=== PATIENT | male | born 1935 | race Caucasian/White ===

== ENCOUNTER 2016-05-01 12:16 | Inpatient (IN) | payer OTHER ==
[2016-05-01] MEDS ORDERED: ASPIRIN PO STA (12:32)
[2016-05-01 12:47] LABS: MANUAL DIFF NEEDED? NO
[2016-05-01] MEDS ORDERED: NORCO-7.5 PO ONE (12:47)
[2016-05-01 12:49] LABS: BASO% 1.1 % (0.0-0.8); EOS# 0.14 X1000 (0.0-0.7); EOS% 2.7 % (0.0-10.0); HEMATOCRIT 37.2 % (42.0-52.0); HEMOGLOBIN 11.9 g/dL (14.0-18.0); IMM GRAN# 0.01 X1000 (0.0-0.04); IMM GRAN% 0.2 % (0.0-0.5); LYMPH# 0.89 X1000 (1.2-3.4); MCH 27.1 PG (27-31); MCV 84.7 FL (81-99); MONO# 0.54 X1000 (0.11-0.59); MONO% 10.3 % (1.7-9.3); MPV 9.4 FL (7.4-10.4); NEUT% 68.7 % (42.2-75.2); PLT 213 X1000 (130-400); RBC 4.39 XMIL (4.7-6.1)
[2016-05-01 13:12] LABS: INR 1.3 (0.86-1.15); PROTIME 16.5 Seconds (12.1-15.5)
[2016-05-01 13:13] LABS: PTT PL 39.4 Seconds (22.6-43.9)
[2016-05-01 13:17] LABS: AGAP 10; ALBUMIN 3.7 g/dL (3.5-5.0); ALKALINE PHOSPHATASE 83 U/L (32-122); BUN 21 mg/dL (8-22); CALCIUM 9.1 mg/dL (8.8-10.2); CHLORIDE 104 mmol/L (98-107); CK PROFILE 79 U/L (24-204); COSMO 283; GOT 20 U/L (10-34); GPT 16 U/L (10-44); MAGNESIUM 2.4 mg/dL (1.5-2.7); POTASSIUM 3.8 mmol/L (3.5-5.1); SODIUM 139 mmol/L (136-145); TCO2 25 mmol/L (25-35); TOTAL PROTEIN 7.1 g/dL (6.3-8.3)
--- NOTE | 2016-05-01 13:23 | PROVIDER DOCUMENTATION ---
HPI-Chest Pain - General Chief Complaint: Chest Pain Stated Complaint: CHEST PAIN Time Seen by Provider: 05/01/16 12:22 Source: patient, family Allergies/Adverse Reactions: Patient Allergies Allergy/AdvReac Type Severity Reaction Status Date / Time Penicillins Allergy RASH Verified 05/01/16 12:22 Home Medications: Home Medication List Medication Instructions Recorded Confirmed Last Taken Type Alprazolam [Xanax] 0.5 mg PO HS 12/20/15 12/21/15 Unknown History Amiodarone [Cordarone] 200 mg PO DAILY 12/20/15 12/20/15 05/01/16 History Apixaban [Eliquis] 5 mg PO DAILY 12/20/15 12/20/15 05/01/16 History Aspirin [Aspir-Low] 81 mg PO DAILY 12/20/15 12/20/15 05/01/16 History Furosemide [Lasix] 40 mg PO DAILY 12/20/15 12/20/15 05/01/16 History Insulin Humulin 70/30 [Humulin 25 unit .SEE ORDER DIRECTED 12/20/15 12/20/15 05/01/16 History 70/30] Potassium Chloride E.r. [Klor-Con] 20 meq PO DAILY 12/20/15 12/20/15 05/01/16 History RAMIpril [Altace] 5 mg PO DAILY 12/20/15 12/20/15 05/01/16 History Temazepam [Restoril] 30 mg PO HS 12/20/15 12/21/15 04/30/16 History - History of Present Illness-CP Nature of Presenting Problem: Reports to er with original cc of Chest pain. Pt reports now no chest pain. Daughter at bedside Reports to father " but daddy what about at home when you grab your chest?" Pt Replies "Destiny its because of stress." Pt complains of left hip pain at this time. Pt reports he has had two open heart sx and bilateral hip replacements and a pacemaker. Denies sob,v,weakness,f. Denies having any injuries. Quality of Pain: reports: aching Severity in ED: moderate Onset/Duration: unsure Timing: still present Aspirin Treatment Today: 325 mg x 1, provided by ED Similar Symptoms Previously?: Yes Recently Seen Here or By Another Healthcare Provider: No Review of Systems - Adult - REVIEW OF SYSTEMS - ADULT Constitutional: denies: chills, fever, fatique Eyes: reports: no symptoms reported Ears, Nose, Mouth & Throat: denies: ear pain, sinus problem, throat pain Cardiovascular: reports: see HPI, chest pain. denies: irregular heart rate, orthopnea, syncope Respiratory: denies: cough, shortness of breath, wheezing Gastrointestinal: reports: nausea. denies: abdominal pain, diarrhea, vomiting Genitourinary: reports: no symptoms reported Musculoskeletal: reports: see HPI, joint pain. denies: frequent leg cramps, joint swelling, muscle weakness, neck pain Integumentary: reports: no symptoms reported Neurological: reports: no symptoms reported Psychiatric: reports: no symptoms reported Endocrine: reports: no symptoms reported Hematologic/Lymphatic: reports: no symptoms reported Allergic/Immunologic: reports: no symptoms reported All Other Systems: Reviewed and Negative Past History - Adult - PAST MEDICAL HISTORY-ADULT Review of Records: reports: Nursing Assessment Review Major Childhood Illnesses: reports: denies history Cardiovascular: reports: CHF, hyperlipidemia, pacemaker Gastrointestinal: reports: cancer (colon) Neurological: reports: dementia Endocrine/Immune: reports: Diabetes - PRIOR SURGERIES/PROCEDURES Surgical/Procedure History: reports: CABG (x), hernia repair, joint replacement , back/neck, other (colostomy) - IMMUNIZATION STATUS Childhood Immunizations: See Nurse Assessment Flu Vaccine: See Nurse Assessment - SOCIAL HISTORY Smoking: denies Substance Use: none/never Physical Exam-General - PHYSICAL EXAM-ADULT Initial Vital Signs Reviewed: Yes - CONSTITUTIONAL General Appearance: appears well, alert, no apparent distress - EYES Eyes: PERRL/EOMI - NECK Neck: non-tender, full range of motion, supple, normal inspection - RESPIRATORY Respiratory: chest non-tender, lungs clear, normal breath sounds, no pleuratic chest pain, no respiratory distress, no accessory muscle use - CARDIOVASCULAR Cardiovascular: regular rate, rhythm - GASTROINTESTINAL (ABDOMEN) Abdominal Exam: non tender, soft, no organomegaly, no pulsatile mass - MUSCULOSKELETAL Extremity: normal range of motion, non-tender - SKIN Integumentary: normal color, normal turgor, warm/dry - PSYCHIATRIC Psych/Mental Status: normal mood/affect, normal thought content, normal thought process, oriented x 3 Progress - PLAN OF CARE/RESULTS Progress/Plan/Lab Results: Orders Category Date Time Status Cardiac Monitoring DIRECTED Care 05/01/16 12:33 Active Saline Loc NOW Care 05/01/16 12:33 Active CHEST-PORTABLE [RAD] Stat Exams 05/01/16 12:32 Ordered XRAY PELVIS W/HIP 2-3VW LT [RAD] Stat Exams 05/01/16 13:01 Taken CBC WITH ELECTRONIC DIFF [HEME] Stat Lab 05/01/16 12:40 Completed CK PROFILE [SP CHEM] Stat Lab 05/01/16 12:40 Completed COMPREHENSIVE METABOLIC PANEL [CHEM] Stat Lab 05/01/16 12:[address] D-D[address]ER [address] [COAG] Stat Lab 05/01/16 12:40 Results MAGNESIUM [CHEM] Stat Lab 05/01/16 12:40 Completed PRO B-NATRIURETIC PEPTIDE Stat Lab 05/01/16 12:[address] Received [address]IME WITH INR PL [COAG] Stat Lab 05/01/16 12:[address] [COAG] Stat Lab 05/01/16 12:40 Results TROPONIN T Stat Lab 05/01/16 12:40 Completed Aspirin Med 05/01/16 12:32 Discontinued 325 mg PO STAT STA Hydrocodone/APAP 7.5 mg/325 mg [Arion-7.5] Med 05/01/16 12:47 Discontinued 1 each PO NOW ONE EKG [EKG] Stat Ther 05/01/16 12:33 Ordered Orders Category Date Time Status Cardiac Monitoring DIRECTED Care 05/01/16 12:33 Active Saline Loc NOW Care 05/01/16 12:33 Active ANGIOGRAM/PULMONARY ARTERIES [CT] Stat Exams 05/01/16 14:29 Ordered CHEST-PORTABLE [RAD] Stat Exams 05/01/16 12:32 Taken XRAY PELVIS W/HIP 2-3VW LT [RAD] Stat Exams 05/01/16 13:01 Completed CBC WITH ELECTRONIC DIFF [HEME] Stat Lab 05/01/16 12:40 Completed CK PROFILE [SP CHEM] Stat Lab 05/01/16 12:40 Completed COMPREHENSIVE METABOLIC PANEL [CHEM] Stat Lab 05/01/16 12:[address] [COAG] Stat Lab 05/01/16 12:40 Completed MAGNESIUM [CHEM] Stat Lab 05/01/16 12:40 Completed PRO B-NATRIURETIC PEPTIDE Stat Lab 05/01/16 12:[address] Com[address]IME WITH INR PL [COAG] Stat Lab 05/01/16 12:[address] [COAG] Stat Lab 05/01/16 12:40 Completed TROPONIN T Stat Lab 05/01/16 12:40 Completed Aspirin Med 05/01/16 12:32 Discontinued 325 mg PO STAT STA Hydrocodone/APAP 7.5 mg/325 mg [Arion-7.5] Med 05/01/16 12:47 Discontinued 1 each PO NOW ONE EKG [EKG] Stat Ther 05/01/16 12:33 Draft Laboratory Tests 05/01/16 05/01/16 05/01/16 12:40 12:40 12:40 WBC RBC Hgb Hct MCV MCH MCHC RDW Std Deviation Plt Count MPV Immature Gran % (Auto) Neut % (Auto) Lymph % (Auto) [place] % (Auto) Eos % (Auto) Baso % (Auto) Immature Gran # (Auto) Neut # (Auto) Lymph # (Auto) [place] # (Auto) Eos # (Auto) Baso # (Auto) PT INR APTT (Factor Assay) D-Dimer Sodium 139 Potassium 3.8 Chloride 104 Carbon Dioxide 25 Anion Gap 10 BUN 21 Creatinine 1.0 Estimated GFR/1.73 m2 > 60 BUN/Creatinine Ratio 21 Glucose 135 H Calculated Osmolality 283 Calcium 9.1 Magnesium 2.4 Total Bilirubin 0.50 AST 20 ALT 16 Alkaline Phosphatase 83 Creatine Kinase 79 Troponin T < 0.010 [id number] Pept 2571 H Total Protein 7.1 Albumin 3.7 Globulin 3.0 Albumin/Globulin Ratio 1.0 05/01/16 05/01/16 12:40 12:40 WBC 5.23 RBC 4.39 L Hgb 11.9 L Hct 37.2 L MCV 84.7 MCH 27.1 MCHC 32.0 L RDW Std Deviation 14.5 Plt Count 213 MPV 9.4 Immature Gran % (Auto) 0.2 Neut % (Auto) 68.7 Lymph % (Auto) 17.0 L [place] % (Auto) 10.3 H Eos % (Auto) 2.7 Baso % (Auto) 1.1 H Immature Gran # (Auto) 0.01 Neut # (Auto) 3.59 Lymph # (Auto) 0.89 L [place] # (Auto) 0.54 Eos # (Auto) 0.14 Baso # (Auto) 0.06 PT 16.5 H INR 1.30 H APTT (Factor Assay) 39.4 D-Dimer 2.40 H Sodium Potassium Chloride Carbon Dioxide Anion Gap BUN Creatinine Estimated GFR/1.73 m2 BUN/Creatinine Ratio Glucose Calculated Osmolality Calcium Magnesium Total Bilirubin AST ALT Alkaline Phosphatase Creatine Kinase Troponin T [id number]-[id number] Pept Total Protein Albumin Globulin Albumin/Globulin Ratio Vital Signs - 24 hr 05/01/16 14:09 Pulse Rate 82 Respiratory 17 Rate Blood Pressure 117/75 1550 paiged - EKG 1 Time of EKG reading by physician:: 12:20 EKG Read and Signed by:: Sudeep Zamudio EKG Interpretation (*Must complete 3 of following elements*): Abnormal Rate: 88 Rhythm: nsr Olla: normal QRS: LBB MA Interval: normal - XRAY 1 XRAY: Bilateral XRAY Study: Chest Impression: Abnormal (left effusion with atelectasis) - CT/MRI 1 CT Study: Angiogram Impression: Abnormal (NO PE. Small effusions with basilar atelectasis and possibley and underlying infiltrate in the LLL. Emphysema. There is evidence of prior granulomatous infection. Limited images through the upper abd reveal several stones within a nondistended gallbladder. no adjacent inflammation.), See EMR Report - CONSULTS/PCP/HOSPITALIST Notification #1 *Consult/PCP/Hospitalist*: Time Discussed: 15:54 Consult Disposition: Admit Departure - Departure Time of Disposition Order: 15:46 DIAGNOSIS: Pneumonia Qualifiers: Pneumonia type: due to unspecified organism Laterality: left Lung location: lower lobe of lung Qualified Code(s): J18.1 - Lobar pneumonia, unspecified organism Chest pain Qualifiers: Chest pain type: unspecified Qualified Code(s): R07.9 - Chest pain, unspecified Disposition: ADMITTED INPATIENT 09 Certified Medical Emergency: Emergent Condition: Stable Attestation - Scribe Verification/Attestation Scribe:: Verona Bacon Acting as Scribe for:: Sudeep Zamudio Scribe documention review:: This chart was documented by a scribe and accurately reflects the service the provider performed and the decisions made by the provider. Physician Attestation - Physician Attestation I, the provider, attest to the following statement:: Sudeep Zamudio Physician documentation Attestation:: This documentation recorded by the scribe accurately reflects the service I personally performed and the decisions made by me.
--- NOTE | 2016-05-01 13:24 | EKG Report ---
Test Performed on : 05/01/2016 12:20:13 PM Test Reason : CHEST PAIN Blood Pressure : / mmHG Vent. Rate : 088 BPM Atrial Rate : 088 BPM P-R Int : 148 ms QRS Dur : 144 ms QT Int : 438 ms P-R-T Axes : 016 051 205 degrees QTc Int : 529 ms Normal sinus rhythm. Left bundle branch block Abnormal ECG No previous ECGs available Unconfirmed Result
--- NOTE | 2016-05-01 13:37 | Diag Imaging Result Document ---
PROCEDURE NAME: XRAY PELVIS W/HIP 2-3VW LT - 05/01/2016 PELVIS AND LEFT HIP, THREE VIEWS: FINDINGS: There has been prior orthopaedic replacement of the left hip. No evidence of loosening. No fracture. No dislocation. No other bony abnormality. IMPRESSION: No acute abnormality.
--- NOTE | 2016-05-01 15:34 | Diag Imaging Result Document ---
PROCEDURE NAME: ANGIOGRAM/PULMONARY ARTERIES - 05/01/2016 CT CHEST WITH INTRAVENOUS CONTRAST: FINDINGS: There is normal opacification of the pulmonary arteries and their major branches. There is a small left sided pleural effusion measuring 2.6 cm posteriorly and inferiorly in the midline. Trace right effusion. No cardiomegaly. There is at least moderate atherosclerosis. No aneurysmal dilatation to the thoracic aorta or dissection. There are several small calcified mediastinal lymph nodes and there are scattered calcified granuloma. Small hilar lymph nodes are also calcified. There are severe emphysematous changes. There is atelectasis versus and infiltrate in the left lower lobe with a small amount of atelectasis in the right lower lobe. IMPRESSION: 1. No pulmonary emboli. 2. Small effusions with basilar atelectasis and possibly and underlying infiltrate in the left lower lobe. 3. Emphysema. 4. There is evidence of a prior granulomatous infection. 5. Limited images through the upper abdomen reveal several stones within a nondistended gallbladder. No adjacent inflammation. A preliminary report was given at 3:19 p.m.
[2016-05-01] MEDS ORDERED: ROCEPHIN 1 GM/NS 50 ML IV ONE (15:45)
[2016-05-01] MEDS ORDERED: LEVAQUIN PO ONE (15:45)
[2016-05-01] MEDS ORDERED: ZOFRAN IV PRN (17:46)
[2016-05-01] MEDS ORDERED: TYLENOL PO PRN (17:46)
[2016-05-01] MEDS ORDERED: PNEUMOVAX 23 IM ONE (19:30)
[2016-05-01] MEDS ORDERED: MORPHINE IV PRN ×2 (19:55→20:53)
[2016-05-01] MEDS ORDERED: TORADOL IV PRN (20:53)
[2016-05-01] MEDS ORDERED: XANAX PO PRN (20:55)
[2016-05-01] MEDS ORDERED: DUONEB (A & A) INH PRN (20:57)
[2016-05-01] MEDS ORDERED: HUMULIN R DOSE (PARKWAY) SUBQ SCH (21:00)
[2016-05-01] MEDS ORDERED: HUMULIN 70/30 SCH (21:00)
[2016-05-01] MEDS ORDERED: NORCO-7.5 PO PRN (21:23)
[2016-05-01] MEDS: DUONEB (A & A) INH SCH (22:16)
[2016-05-01] MEDS: ZANAFLEX PO SCH (22:44)
[2016-05-01] MEDS: RESTORIL PO SCH (22:44)
[2016-05-01] MEDS: ALTACE PO SCH (22:50)
[2016-05-02] MEDS: NEURONTIN PO SCH ×4 (00:07→16:14)
[2016-05-02] MEDS: MORPHINE IV PRN ×5 (00:57→20:50)
[2016-05-02] MEDS: DUONEB (A & A) INH SCH ×4 (03:02→22:57)
[2016-05-02 06:40] LABS: HEMATOCRIT 34.5 % (42.0-52.0); HEMOGLOBIN 10.8 g/dL (14.0-18.0); MCH 26.7 PG (27-31); MCHC 31.3 g/dL (33-37); MCV 85.4 FL (81-99); MPV 10.1 FL (7.4-10.4); RBC 4.04 XMIL (4.7-6.1)
[2016-05-02 06:55] LABS: AGAP 12; BUN 23 mg/dL (8-22); CALCIUM 8.6 mg/dL (8.8-10.2); CHLORIDE 103 mmol/L (98-107); COSMO 282; SODIUM 137 mmol/L (136-145); TCO2 22 mmol/L (25-35)
[2016-05-02] MEDS: HUMULIN R (PARKWAY) SUBQ SCH ×4 (07:01→20:57)
--- NOTE | 2016-05-02 07:16 | Diag Imaging Result Document ---
PROCEDURE NAME: CHEST-PORTABLE - 05/01/2016 PORTABLE CHEST: FINDINGS: Sternal wires are present and the patient has a left sided pacemaker. There is a small left effusion with left basilar atelectasis. The right lung is well expanded and clear. The vessels are not distended. IMPRESSION: Small left pleural effusion with left basilar atelectasis.
--- NOTE | 2016-05-02 08:48 | Diag Imaging Result Document ---
PROCEDURE NAME: PELVIS W/O CONTRAST - 05/01/2016 CT SCAN OF THE PELVIS WITHOUT IV CONTRAST WITH 3D RECONSTRUCTION: Preliminary interpretation was given by the on-call radiologist. INDICATION: Severe left hip pain. FINDINGS: There are bilateral total hip arthroplasties without adverse features. No acute fracture or destructive lesion is identified. There is a previous L4 and L5 laminectomy. There are bulging disks and facet bony overgrowth at L4/L5 and L5/S1 producing bilateral neural foraminal stenosis. There is contrast within the bladder from previous CT angiogram. Left lower quadrant ostomy with hernia is noted as is a small anterior midline ventral hernia containing bowel but no obstruction. The distal abdominal aorta measures 2.8 cm in maximal dimension with unchanged intimal calcification which appears somewhat displaced and is indeterminate for dissection. IMPRESSION: 1. Bilateral total hip arthroplasties without adverse features. No fracture about the pelvis is appreciated. 2. Severe degenerative changes in the lower lumbar spine with bilateral neural foraminal stenosis at L3/L4, L4/L5, and L5/S1. 3. Anterior ventral hernia and left lower quadrant ostomy hernia containing bowel but no definite obstruction.
[2016-05-02] MEDS ORDERED: NEURONTIN PO SCH (09:00)
[2016-05-02] MEDS: LEVAQUIN PO SCH (09:05)
[2016-05-02] MEDS: ELIQUIS PO SCH (09:05)
[2016-05-02] MEDS: ZANAFLEX PO SCH ×3 (09:05→16:14)
[2016-05-02] MEDS: ASPIRIN EC PO SCH (09:06)
[2016-05-02] MEDS: CORDARONE PO SCH (09:06)
[2016-05-02] MEDS: KLOR-CON PO SCH (09:06)
[2016-05-02] MEDS: LASIX PO SCH (09:07)
[2016-05-02] MEDS: HUMULIN 70/30 (PARKWAY) SUBQ SCH ×2 (09:16→16:52)
[2016-05-02] MEDS ORDERED: ZANAFLEX PO PRN (17:15)
--- NOTE | 2016-05-02 17:41 | HISTORY AND PHYSICAL ---
CHIEF COMPLAINT: Left hip pain. In the ER somehow it was transitioned as a chest pain. He really is coming in because of chest pain. HISTORY OF PRESENT ILLNESS: There is a family element that is making the assessment fairly difficult as family is a nurse, and according to the report here, daughter at bedside reports the dadsteve went when you grab your chest. So, he has chest pain, but it has to kind of be elaborated. Really he was complaining more about his hip and hip pain for which he has had bilateral hip replacements. He does have a cardiac history, but it is unclear really if he does truly have any chest pain. Workup in the ER was really unremarkable except for CT showed questionable left lower lobe infiltrate which turned into a diagnosis of pneumonia and he was admitted for such a process. He did have a nondistended gallbladder. Plain films of his hips were unremarkable. He has had bilateral replacements, and he had no chest pain when I interviewed him the evening before. There was some concern in the ER, daughter got very upset that he was not admitted to the ICU. There has been a lot of family dynamics kind of complicating and frankly just interfering in care. PAST MEDICAL HISTORY: 1. Atrial fibrillation. 2. Coronary artery disease, status post CABG. 3. Type 2 diabetes. 4. Dyslipidemia. 5. History of colon cancer status post colectomy. 6. Congestive heart failure. 7. Dementia. PAST SURGICAL HISTORY: 1. He had CABG. 2. Back and neck surgery. 3. Colon resection with colostomy. FAMILY HISTORY: Reviewed and noncontributory. SOCIAL HISTORY: No tobacco or ethanol. He is retired. ALLERGIES: Penicillin which causes a rash. REVIEW OF SYSTEMS: Negative. MEDICATIONS: 1. Xanax 0.25, 1 mg p.r.n. 2. Altace 5 daily. 3. Apixaban 5 daily. 4. Aspirin 81 daily. 5. Cordarone 200 daily. 6. 70/30 insulin, 25 in the morning and 20 at night. 7. Klor-Con 20 daily. 8. Lasix 40 daily. 9. Restoril 30 daily. 10. Neurontin 200 t.i.d. REVIEW OF SYSTEMS: Otherwise negative times a 10 point review of systems. PHYSICAL EXAMINATION: VITAL SIGNS: Blood pressure was 121/97, heart rate of 83, respiratory rate 18, temperature 97.4 degrees. 100% saturation on room air. GENERAL: A well-developed male, no acute distress. HEAD: Normocephalic, atraumatic. EYES: Pupils equal, round, reactive to light. Extraocular movements were intact. EAR/NOSE/THROAT: Moist mucous membranes. NECK: Supple. CARDIOVASCULAR: Regular rate and rhythm. PULMONARY: Bilateral breath sounds. Clear to auscultation. GI: Soft, nontender, nondistended. Bowel sounds are positive. EXTREMITIES: No clubbing or cyanosis. LYMPHATICS: No peripheral edema. NEUROLOGICAL: Nonfocal. LABORATORY DATA: White count normal, hemoglobin and hematocrit 10 and 34. Chemistries looked okay. Coagulase okay. CT scan of the pelvis was negative for fracture, infection, inflammation. PROBLEM LIST: 1. Chest pain which is atypical and probably related to pulmonary infection and really felt more that this was an issue associated with a positive review of systems than truly a chief complaint. His main complaint was his hip so he was further evaluated. 2. Left hip pain. We will pursue computed tomography scan and follow clinically. Continue pain control. If unimproved, consider Orthopedics consult. 3. Diabetes. Continue to monitor. Sliding scale and follow closely. DISPOSITION: Pending the rest of his multiple issues.
--- NOTE | 2016-05-02 17:47 | PROGRESS NOTE ---
DATE: 05/02/2016 SUBJECTIVE: Patient has no complaints except hip pain O: AVSS PE: CV: RRR PULM: CTA-B GI: soft NT/ND BS:+ EX: hip pain on left side AP: 1) Right hip pain - unclear diagnosis; . He says the pain medication is not working. His son states that we did increase the morphine this morning and he feels like the morphine is working. He had relief for about 4-5 hours so it is a little confusing sometimes. It is still unclear what the source of pain is. His plain films and CT are negative. I have requested an orthopedic consult that is still in the process of happening. Mid level has evaluated the patient. Dr. Carreon will come and evaluate a little later. 2. Chest pain. Appears to have resolved. 3. Pneumonia. He is on oral Levaquin and seems to be doing okay. We will continue to follow. MTDD
[2016-05-02] MEDS ORDERED: SOLU-MEDROL IV ONE (19:44)
[2016-05-02] MEDS: RESTORIL PO SCH (20:50)
[2016-05-02] MEDS: ALTACE PO SCH (20:51)
[2016-05-03] MEDS: DUONEB (A & A) INH SCH ×4 (04:25→21:15)
[2016-05-03] MEDS: MORPHINE IV PRN ×2 (04:49→09:56)
[2016-05-03 06:05] LABS: HEMATOCRIT 37.2 % (42.0-52.0); HEMOGLOBIN 11.9 g/dL (14.0-18.0); MCH 26.9 PG (27-31); MCV 84.2 FL (81-99); MPV 10.3 FL (7.4-10.4); RBC 4.42 XMIL (4.7-6.1)
[2016-05-03] MEDS: HUMULIN R (PARKWAY) SUBQ SCH ×3 (06:09→17:43)
[2016-05-03 06:50] LABS: AGAP 12; BUN 28 mg/dL (8-22); CALCIUM 9.4 mg/dL (8.8-10.2); CHLORIDE 101 mmol/L (98-107); COSMO 283; POTASSIUM 4.7 mmol/L (3.5-5.1); SODIUM 135 mmol/L (136-145); TCO2 22 mmol/L (25-35)
[2016-05-03] MEDS: HUMULIN 70/30 (PARKWAY) SUBQ SCH ×2 (07:24→17:44)
[2016-05-03] MEDS: ELIQUIS PO SCH (09:55)
[2016-05-03] MEDS: NEURONTIN PO SCH ×3 (09:56→17:43)
[2016-05-03] MEDS: KLOR-CON PO SCH (09:56)
[2016-05-03] MEDS: ASPIRIN EC PO SCH (09:56)
[2016-05-03] MEDS: LEVAQUIN PO SCH (09:56)
[2016-05-03] MEDS: CORDARONE PO SCH (09:56)
[2016-05-03] MEDS: LASIX PO SCH (09:56)
--- NOTE | 2016-05-03 10:07 | CONSULTATION ---
DATE OF CONSULTATION: 05/02/2016 ADMITTING PHYSICIAN: Suman Grant MD. CONSULTING PHYSICIAN: Gregorio Carreon MD. CHIEF COMPLAINT: Left hip pain. HISTORY OF PRESENT ILLNESS: Mr. Cano is a pleasant, 86-year-old, white male who has experienced recalcitrant left hip pain for 2 weeks. 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 He denies any history of injury to the left hip for falls. His pain is worse with weightbearing activities. It is transient in that sometimes it becomes more severe and then wanes. However, his pain has progressed and he presented himself to the emergency department for evaluation. Mr. Cano has multiple medical comorbidities and was admitted by Dr. Grant after a CT scan revealed findings consistent with possible consolidation in his respiratory system. Orthopedics was consulted for his left hip pain in that he has had bilateral total hip arthroplasties. PRIMARY CARE PROVIDER: Christos Gaviria MD. ALLERGIES: Penicillin. PAST MEDICAL HISTORY: 1. Osteoarthritis. 2. Coronary artery disease. 3. Hypertension. 4. Congestive heart failure. 5. History of atrial fibrillation. 6. History of colorectal cancer. 7. Insulin-dependent diabetes mellitus. 8. Dementia. 9. Peripheral neuropathy. 10. Anxiety disorder. 11. Insomnia. PAST SURGICAL HISTORY: 1. Bilateral total hip arthroplasty. 2. Back surgery x2. 3. Coronary artery bypass grafting x2. His first bypass operation was in the remote past, approximately 30 years ago. He had a secondary bypass operation approximately [address] Sanchez in [place]. 4. Colon resection. 5. Colostomy. 6. Pacemaker insertion. SOCIAL HISTORY: The patient is . He maintains a home with his . He is very active. 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 He is a short-term remote smoker. MEDICATIONS AT HOME: 1. Neurontin 200 mg 3 times a day. 2. Humulin insulin 70/30, taken as directed. 3. Xanax 1 mg by mouth at bedtime as needed. 4. Cordarone 200 mg by mouth daily. 5. Lasix 40 mg by mouth daily. 6. Aspirin 81 mg by mouth daily. 7. Altace 5 mg by mouth at bedtime. 8. Klor-Con 20 mEq by mouth daily. 9. Restoril 30 mg by mouth at bedtime. 10. Eliquis 5 mg by mouth daily. REVIEW OF SYSTEMS: General: No known history of stroke or cerebrovascular disease. Denies recent interval health change other than his left hip pain. Cardiac: He has a long-standing history of coronary artery disease, having underwent a bypass operation on 2 separate occasions. He also has a history of atrial fibrillation and has underwent a pacemaker insertion. Pulmonary: The patient was a remote short-term smoker. Denies any chronic lung disease. Denies cough or productive cough. Abdomen: The patient has a history of colorectal cancer. He has underwent a colon resection and he has a colostomy on his left abdominal wall. Genitourinary: No recent kidney or bladder infection or dysfunction. Musculoskeletal: He is here today for persistent left hip and upper leg pain. He has a long-standing history of osteoarthritis, having underwent bilateral total hip arthroplasties. Other: He is treated for dementia, peripheral neuropathy, anxiety and insomnia. PHYSICAL EXAMINATION: General: The patient is resting in bed. He is in no acute distress. He has family at his bedside. He is articulate and able to answer all questions fully. HEENT: Head is normocephalic and atraumatic. Pupils are equal, round, react to light. Nares are patent. Throat without exudate. Neck: Supple. Heart: Regular rate and rhythm. No murmurs, gallops, or rubs. Lungs: Clear to auscultation bilaterally. Abdomen: Round. Bowel sounds are present. It is nontender. Genitourinary: Not examined. Neurological: Gross motor function is intact of the affected extremity. He has good sensory perception. Musculoskeletal: Left leg : No obvious deformity, edema or ecchymosis is present. His pain is pinpointed approximately on the lateral aspect of the left leg 5-6 inches below the greater trochanter. He does have some tenderness at this location. He explains that his pain radiates somewhat down to the left knee. He denies any back pain. He has full active range of motion. His pain is somewhat exacerbated with a straight leg raise. He does not have pain with manipulation of the hip joint. Neurovascular status is intact with a good peripheral pulse. IMAGING: Radiographic evaluation of the spine reveals significant degenerative disk disease. No abnormality was noted concerning his left prosthetic hip. IMPRESSION: Radicular low back pain. PLAN: Thank you for including us in the care of Mr. Cano. We recommend continued management with analgesia. The hip exam seemed fairly benign. I would think its more radicular pain in nature. Mobilize with PT and once able to be discharged, the patient will need to see his orthopedic surgeon who performed the total hip arthroplasty. Dictated by BARRON Nuñez for Gregorio Carreon MD MTDD
--- NOTE | 2016-05-03 14:12 | PROGRESS NOTE ---
DATE: 05/03/2016 SUBJECTIVE: Patient has no focal complaints. He is still complaining of pain in his left hip. Now it is extending down to his leg along the left anterior portion above his knee OBJECTIVE: Vital Signs: Blood pressure 134/54, heart rate of 87, respiratory rate 14, temperature 97.5 degrees, 96% on room air. Cardiovascular: Regular rate and rhythm. Pulmonary: Bilateral breath sounds. Clear to auscultation. Gastrointestinal: Soft, nontender, nondistended. Bowel sounds are positive. Extremities: No clubbing or cyanosis. Lymphatics: No peripheral edema. Neurological: Nonfocal. LABORATORY DATA: I think was pretty much unremarkable. Hemoglobin and hematocrit 11 and 37. Chemistries looked okay. PROBLEM LIST: 1. Left hip pain and leg pain. Unclear diagnosis. We have had a workup with CT of the bones, with no major issues. Orthopedics has evaluated the patient and feels like this more likely is related to degenerative joint disease of the back and possible radiculopathy and referred pain, unlikely to be deep vein thrombosis since he is on apixaban, although he is only on a daily dose. He is concerned over abdominal issues because he had colitis in the past and colon cancer, although the noncontrast CT a couple days ago was negative, but the last admission he had, he did have apparently inflammation of the colon that was noted at that time. Right now, no nausea or vomiting, no diarrhea, no white count, no increased ostomy output. He seems pretty stable from that standpoint. We will CT his abdomen with contrast and see if there is anything else going on from that standpoint. 2. Atrial fibrillation appears to be controlled. 3. Diabetes appears to be controlled. DISPOSITION: Will work on ambulation, trying to get up and around, and then plan on hopefully discharge tomorrow on steroids and anti-inflammatory, and probably some physical therapy at home.
[2016-05-03] MEDS: MOBIC PO SCH (14:25)
[2016-05-03] MEDS: PREDNISONE PO SCH (14:25)
--- NOTE | 2016-05-03 16:30 | Diag Imaging Result Document ---
PROCEDURE NAME: ABDOMEN/PELVIS W/CONTRAST - 05/03/2016 CT ABDOMEN PELVIS WITH INTRAVENOUS CONTRAST: COMPARISON: CT pelvis, 05/01/2016, CT abdomen pelvis 12/21/2015. FINDINGS: There is a small left pleural effusion. There are pacemaker leads in the heart. Heart size is normal. There are gallstones in the gallbladder. No gallbladder inflammation. The liver, pancreas, spleen and adrenals are normal. Stable right renal scarring. 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 Stable bilateral hip replacements. Stable left lower quadrant diverting colostomy. No bowel obstruction or inflammation, although there is mild constipation of the cecum and ascending colon. Stable laxity of the anterior abdominal wall. Urinary bladder appears normal. Stable laminectomies at L4 and L5. Stable heavy degeneration throughout the lumbar spine. No acute bony lesions. IMPRESSION: 1. Small left pleural effusion. 2. Cholelithiasis. 3. Resolution of the colitis. 4. Constipation.
[2016-05-03] MEDS: RESTORIL PO SCH (21:07)
[2016-05-03] MEDS: ALTACE PO SCH (21:07)
[2016-05-03] MEDS: NORCO-10 PO PRN (21:08)
[2016-05-04] MEDS: HUMULIN R (PARKWAY) SUBQ SCH ×4 (00:40→16:48)
[2016-05-04] MEDS: DUONEB (A & A) INH SCH ×3 (03:32→16:30)
[2016-05-04 06:37] LABS: CALCIUM 9.3 mg/dL (8.8-10.2); POTASSIUM 4.4 mmol/L (3.5-5.1)
[2016-05-04 06:53] LABS: HEMATOCRIT 34.8 % (42.0-52.0); HEMOGLOBIN 11.2 g/dL (14.0-18.0); MCH 27.1 PG (27-31); MCHC 32.2 g/dL (33-37); MCV 84.1 FL (81-99); MPV 10.2 FL (7.4-10.4); RBC 4.14 XMIL (4.7-6.1)
[2016-05-04] MEDS ORDERED: PRILOSEC PO SCH (07:00)
[2016-05-04] MEDS: HUMULIN 70/30 (PARKWAY) SUBQ SCH ×2 (08:55→16:48)
[2016-05-04] MEDS: ELIQUIS PO SCH (08:56)
[2016-05-04] MEDS: NEURONTIN PO SCH ×3 (08:56→17:56)
[2016-05-04] MEDS: MOBIC PO SCH (08:57)
[2016-05-04] MEDS: LEVAQUIN PO SCH (08:57)
[2016-05-04] MEDS: CORDARONE PO SCH (08:57)
[2016-05-04] MEDS: PREDNISONE PO SCH (08:57)
[2016-05-04] MEDS: KLOR-CON PO SCH (08:58)
[2016-05-04] MEDS: ASPIRIN EC PO SCH (08:58)
[2016-05-04] MEDS: LASIX PO SCH (09:10)
--- NOTE | 2016-05-04 12:50 | Diag Imaging Result Document ---
PROCEDURE NAME: BONE SCAN LIMITED - 05/04/2016 NUCLEAR MEDICINE BONE SCAN WITH CONED DOWN IMAGES OVER THE PELVIS AND THIGHS: FINDINGS: 26.4 mCi of technetium MDP were administered. There is decreased activity within each femoral head and neck consistent with prior orthopaedic replacement. No increased activity about either acetabulum or in either upper femur. There is symmetrical activity within the hips and thighs. No focal abnormal area of increased or decreased activity within the pelvis. IMPRESSION: There is evidence of prior orthopaedic replacement of each hip, but no other abnormality.
[2016-05-04] MEDS: NORCO-10 PO PRN (13:29)
[2016-05-04 16:27] VITALS: BP 110/38
--- NOTE | 2016-05-04 22:32 | DISCHARGE SUMMARY ---
ADMISSION DATE: 05/01/2016 DISCHARGE DATE: 05/04/2016 DISCHARGE DIAGNOSES: 1. Left hip pain possibly associated with lumbar radiculopathy. He has got very significant foraminal stenosis at L3-4-5 and S1 with bilateral neural foraminal stenosis. 2. Small left lower lobe pneumonia. HOSPITAL COURSE: Briefly, this is a gentleman who came in on the with pain in his hip really. His daughter was very focused on him having chest pain which the patient eventually agreed to but it was not really his presenting complaint and, therefore, the workup was kind of bifocal. He was found to have a little bit of pneumonia and was admitted for that although no fever, no real cough, no temperature, no white count at least on admission. He was empirically placed on Levaquin. He complained of persistent pain which generated a lot of testing. He did have a pulmonary angiogram which was negative for PE because he had an elevated D-dimer. He has bilateral total hip arthroplasties which were negative but he did have significant back pain which again clinically we felt that the left hip pain in its distribution was associated with radiculopathy. I did consult Orthopedics. Dr. Carreon was gracious enough to come and evaluate him. He felt that this was likely related to DJD and nothing to do with his hip. He recommended just following up with his regular orthopedist who is Dr. Garcia. We did start him on steroids and anti-inflammatory medicines and he did improve. I went ahead and pursued bone scan which was negative. There was nothing, no increased tracer or inflammation. He was able to ambulate with physical therapy. So I felt comfortable discharging him on the . White count was 1. He was discharged in stable condition. DISCHARGE MEDICATIONS: 1. Xanax 1 p.o. at bedtime p.r.n. 2. Altace 5 at bedtime. 3. Eliquis 5 daily. 4. Aspirin 81 daily. 5. Cordarone 200 daily. 6. 70/30 insulin, 25 in the morning, 20 at night. 7. Klor-Con 20 daily. 8. Lasix 40 daily. 9. Restoril 30 at bedtime. 10. Neurontin 200 t.i.d. 11. [place] 10 1 p.o. at bedtime p.r.n. pain dispense 25. 12. Levaquin 750 for 3 days. 13. Medrol Dosepak. 14. Mobic 7.5 daily. FOLLOWUP: 1. He is to follow up with Dr. Garcia his orthopedist as soon as he can get an appointment to evaluate his hip and then evaluate for any spinal issues. 2. Follow up with his regular PCP in 1 week, that is Dr. Christos Gaviria. DISCHARGE TIME: 32 minutes.
== END 2016-05-04 17:55 | disposition home health service (06) | DRG 551 ==
LOC: P.ED 12:16 → P.MEDSURG 17:02
PROVIDERS: ATTEND Internal Medicine
DX: M47.26 Other spondylosis with radiculopathy, lumbar region (principal); J18.9 Pneumonia, unspecified organism; I11.0 Hypertensive heart disease with heart failure; E11.40 Type 2 diabetes mellitus with diabetic neuropathy, unspecified; F03.90 Unspecified dementia, unspecified severity, without behavioral disturbance, psychotic disturbance, mood disturbance, and anxiety; I50.9 Heart failure, unspecified; I25.10 Atherosclerotic heart disease of native coronary artery without angina pectoris; I48.91 Unspecified atrial fibrillation; E78.5 Hyperlipidemia, unspecified; M48.07 Spinal stenosis, lumbosacral region; M25.552 Pain in left hip; Z96.643 Presence of artificial hip joint, bilateral; Z95.1 Presence of aortocoronary bypass graft; Z95.0 Presence of cardiac pacemaker; Z85.038 Personal history of other malignant neoplasm of large intestine; Z93.3 Colostomy status; Z90.49 Acquired absence of other specified parts of digestive tract; Z79.899 Other long term (current) drug therapy; Z79.82 Long term (current) use of aspirin; Z79.4 Long term (current) use of insulin; F41.9 Anxiety disorder, unspecified; Z87.891 Personal history of nicotine dependence; G47.00 Insomnia, unspecified; R79.1 Abnormal coagulation profile
CPT/HCPCS: 36415; 71010; 71275; 72192; 74177; 78300; 80048; 80053; 82550; 82948; 83735; 83880; 84484; 85025; 85027; 85379; 85610; 85730; 87040; 93005; 94640; 94761; 94799; 96365; A9503; J0696; J1815; J1885; J2270; J2930; J7512; Q9967; 97530-GP

== ENCOUNTER 2016-05-12 16:35 | Emergency (ER) | payer OTHER ==
[2016-05-12 16:42] VITALS: BP 130/68
[2016-05-12] MEDS ORDERED: XYLOCAINE-MPF 1% 10 ML ONE (17:24)
--- NOTE | 2016-05-12 17:52 | PROVIDER DOCUMENTATION ---
HPI-Rash/Wound/ReCheck - General Chief Complaint: Laceration[s] Stated Complaint: lac Time Seen by Provider: 05/12/16 17:17 Source: patient, family Allergies/Adverse Reactions: Allergies Allergy/AdvReac Type Severity Reaction Status Date / Time Penicillins Allergy RASH Verified 05/01/16 12:22 Home Medications: Home Medication List Medication Instructions Recorded Confirmed Last Taken Type Alprazolam [Xanax] 1 mg PO HS PRN 12/20/15 05/01/16 04/30/16 History Amiodarone [Cordarone] 200 mg PO DAILY 12/20/15 05/01/16 05/01/16 History Apixaban [Eliquis] 5 mg PO DAILY 12/20/15 05/01/16 05/01/16 History Aspirin [Aspir-Low] 81 mg PO DAILY 12/20/15 05/01/16 05/01/16 History Furosemide [Lasix] 40 mg PO DAILY 12/20/15 05/01/16 05/01/16 History Insulin Humulin 70/30 [Humulin 1 unit .SEE ORDER DIRECTED 12/20/15 05/01/16 05/01/16 History 70/30] Potassium Chloride E.r. [Klor-Con] 20 meq PO DAILY 12/20/15 05/01/16 05/01/16 History RAMIpril [Altace] 5 mg PO HS 12/20/15 05/01/16 05/01/16 History Temazepam [Restoril] 30 mg PO HS 12/20/15 05/01/16 04/30/16 History Gabapentin [Neurontin] 200 mg PO TID 05/01/16 05/01/16 Unknown History Hydrocodone/APAP 10 mg/325 mg 1 each PO Q6H PRN PRN #25 tablet 05/04/16 Unknown Rx [[place]-10] Levofloxacin [Levaquin] 750 mg PO DAILY #3 tablet 05/04/16 Unknown Rx Meloxicam [Mobic] 7.5 mg PO DAILY #30 tablet 05/04/16 Unknown Rx Methylprednisolone [Medrol Dosepak] 4 mg PO DIRECTED #1 package 05/04/16 Unknown Rx - History of Present Illness-Dermatology Nature of Presenting Problem: 80 year old WM presents with son in law. pt was attempting to cut off the plastic wrapper of a jar with a pocket knife, lost control and struck his left hand, sustaining a 2.5 cm laceration. Location: reports: hands Quality: reports: none Severity: reports: mild Onset/Duration: reports: just prior to arrival Timing: reports: still present, improving (bleeding is controlled) Context/Associated Symptoms: reports: laceration Identifiable cause?: Yes Exposure: reports: unknown cause Review of Systems - Adult - REVIEW OF SYSTEMS - ADULT Constitutional: reports: no symptoms reported. denies: chills, fever, fatique Eyes: reports: no symptoms reported. denies: discharge, blurred vision, double vision, redness Ears, Nose, Mouth & Throat: reports: no symptoms reported. denies: ear discharge, ear pain, nose pain, loose teeth, throat pain, throat swelling Cardiovascular: reports: no symptoms reported. denies: chest pain, orthopnea, palpitations Respiratory: reports: no symptoms reported. denies: chronic cough, cough, shortness of breath, wheezing Gastrointestinal: reports: no symptoms reported. denies: abdominal pain, nausea , vomiting Genitourinary: reports: no symptoms reported. denies: dysuria, hematuria, urgency Musculoskeletal: reports: no symptoms reported. denies: bone pain, joint pain, joint swelling, neck pain Integumentary: reports: see HPI, other (laceration to left hand). denies: hives , itching, rash, skin sores/ulcer Neurological: reports: no symptoms reported. denies: ataxia, dizziness/vertigo , numbness, paresthesia Psychiatric: reports: no symptoms reported Endocrine: reports: no symptoms reported Hematologic/Lymphatic: reports: no symptoms reported Allergic/Immunologic: reports: no symptoms reported All Other Systems: Reviewed and Negative Past History - Adult - PAST MEDICAL HISTORY-ADULT Review of Records: reports: Old Records Reviewed, Nursing Assessment Review, Medications Reviewed, Social history reviewed & non-contributory. Major Childhood Illnesses: reports: denies history Cardiovascular: reports: CHF, hyperlipidemia, pacemaker Respiratory: reports: denies history Gastrointestinal: reports: cancer (colon) Obstetrical/Gynecological: reports: denies history Genitourinary: reports: denies history Musculoskeletal: reports: denies history Neurological: reports: dementia Endocrine/Immune: reports: Diabetes Other Conditions: reports: denies history - PRIOR SURGERIES/PROCEDURES Surgical/Procedure History: reports: CABG (x), hernia repair, joint replacement , back/neck, other (colostomy) - IMMUNIZATION STATUS Childhood Immunizations: See Nurse Assessment Flu Vaccine: See Nurse Assessment - FAMILY HISTORY Family History: reviewed, not pertinent - SOCIAL HISTORY Smoking: denies, quit greater than 1 year Substance Use: none/never Alcohol Use Frequency: never Physical Exam-General - PHYSICAL EXAM-ADULT Initial Vital Signs Reviewed: Yes - CONSTITUTIONAL General Appearance: appears well, alert, no apparent distress - EYES Eyes: pink conjunctivae - HEAD, EARS, NOSE, MOUTH & THROAT HENMT: normocephalic/atraumatic, moist mucous membranes, normal ENT inspection - NECK Neck: non-tender, full range of motion, supple, normal inspection - RESPIRATORY Respiratory: chest non-tender, lungs clear, normal breath sounds, no pleuratic chest pain, no respiratory distress, no accessory muscle use - CARDIOVASCULAR Cardiovascular: normal peripheral pulses, regular rate, rhythm - CHEST (BREASTS) Chest/Breast: no tenderness - GASTROINTESTINAL (ABDOMEN) Abdominal Exam: normal bowel sounds, non tender, soft - GENITOURINARY Male Genitalia: deferred Rectal Exam: deferred, decreased tone - LYMPHATIC Lymphatic: no adenopathy - MUSCULOSKELETAL Back Exam: normal inspection, no CVA tenderness, no vertebral tenderness Extremity: normal range of motion, non-tender, normal gait Peripheral Pulses: radial (R): 3+, radial (L): 3+ - SKIN Integumentary: laceration(s) (2.5cm to left posterior hand; full sensation, movement, circulation, strength) - NEUROLOGIC Neurologic: grossly normal, no motor/sensory deficits. negative: motor weakness , sensory deficit - PSYCHIATRIC Psych/Mental Status: normal mood/affect, normal thought content, normal thought process, oriented x 3 Progress - PLAN OF CARE/RESULTS Progress/Plan/Lab Results: Orders Category Date Time Status Lidocaine 1% Pf [Xylocaine-Mpf 1%] 10 ml Med 05/12/16 17:24 Discontinued .ROUTE As Directed Vital Signs - 24 hr 05/12/16 16:36 Temperature 97.8 F Pulse Rate 81 Respiratory 18 Rate Blood Pressure 130/68 O2 Sat by Pulse 100 Oximetry Procedures - LACERATION/WOUND REPAIR/FB Left Hand Wound Location: Other: left posterior hand Wound Length: 2.5cm Wound's Depth, Shape: superficial, linear Wound Explored/Foreign Body: clean Irrigated with Saline?: Yes Prepped with: Hibiclens Anesthetic: 1%, Lidocaine/Xylocaine Volume of Anesthetic (ml's): 5 Wound Debrided: minimal Wound Repaired with: Sutures Suture Size/Type: 5.0, Non-Absorbable, Nylon Number of Sutures: 3 (2 mattress sutures, 1 interupted) Layer Closure?: No Departure - Departure Time of Disposition Order: 17:50 DIAGNOSIS: Laceration Disposition: HOME 01 Certified Medical Emergency: Emergent Condition: Stable Additional Instructions: Follow up in 7 days to have your sutures removed. Take off the current dressing in 24 hours, wash twice a day with a mild soap and water. ED Follow Up Instructions: You have been treated by a care provider in the Emergency Department. These instructions are being provided to you so you can have an understanding of how to care for yourself upon discharge. Upon discharge from the Emergency Department, you are responsible for making arrangements for follow-up care by a physician of your choice. Take all prescribed medications as directed. Return to the Emergency Department immediately for any new or worsening symptoms. You may call the Physician Referral phone number at [phone] to obtain a list of Physicians who are taking new patients. Referrals: Christos Gaviria MD [Primary Care Provider] - Instructions: Laceration Care, Adult, [id number] Attestation - Physician/ KATIUSKA Attestation Patient care was provided by Advanced Practice Provider:: Yes Advanced Practice Provider:: Anabel Masters Advanced Practice Provider documentation review:: The Mid-level provider documentation, treatment plan and medical decision making was reviewed by the physician who agrees with all treatment and medical decision making by the MLP.
== END 2016-05-12 18:10 | disposition home or self-care (01) ==
LOC: P.ED 16:35
DX: S61.412A Laceration without foreign body of left hand, initial encounter (principal); I50.9 Heart failure, unspecified; E78.5 Hyperlipidemia, unspecified; Z95.0 Presence of cardiac pacemaker; Z85.038 Personal history of other malignant neoplasm of large intestine; E11.9 Type 2 diabetes mellitus without complications; F03.90 Unspecified dementia, unspecified severity, without behavioral disturbance, psychotic disturbance, mood disturbance, and anxiety; W26.0XXA Contact with knife, initial encounter; Z79.899 Other long term (current) drug therapy; Z95.1 Presence of aortocoronary bypass graft; Z90.49 Acquired absence of other specified parts of digestive tract; Z87.891 Personal history of nicotine dependence; Z79.1 Long term (current) use of non-steroidal anti-inflammatories (NSAID); Z79.4 Long term (current) use of insulin; Z79.82 Long term (current) use of aspirin; Z79.01 Long term (current) use of anticoagulants
CPT/HCPCS: 99281

== ENCOUNTER 2016-05-22 14:16 | Emergency (ER) | payer OTHER ==
[2016-05-22 14:39] VITALS: BP 117/052
--- NOTE | 2016-05-22 14:45 | PROVIDER DOCUMENTATION ---
HPI-Rash/Wound/ReCheck - General Chief Complaint: Suture/Staple Removal Stated Complaint: SUTURE/STAPLE REMOVAL Time Seen by Provider: 05/22/16 14:40 Source: patient Allergies/Adverse Reactions: Allergies Allergy/AdvReac Type Severity Reaction Status Date / Time Penicillins Allergy RASH Verified 05/01/16 12:22 Home Medications: Home Medication List Medication Instructions Recorded Confirmed Last Taken Type Alprazolam [Xanax] 1 mg PO HS PRN 12/20/15 05/01/16 04/30/16 History Amiodarone [Cordarone] 200 mg PO DAILY 12/20/15 05/01/16 05/01/16 History Apixaban [Eliquis] 5 mg PO DAILY 12/20/15 05/01/16 05/01/16 History Aspirin [Aspir-Low] 81 mg PO DAILY 12/20/15 05/01/16 05/01/16 History Furosemide [Lasix] 40 mg PO DAILY 12/20/15 05/01/16 05/01/16 History Insulin Humulin 70/30 [Humulin 1 unit .SEE ORDER DIRECTED 12/20/15 05/01/16 05/01/16 History 70/30] Potassium Chloride E.r. [Klor-Con] 20 meq PO DAILY 12/20/15 05/01/16 05/01/16 History RAMIpril [Altace] 5 mg PO HS 12/20/15 05/01/16 05/01/16 History Temazepam [Restoril] 30 mg PO HS 12/20/15 05/01/16 04/30/16 History Gabapentin [Neurontin] 200 mg PO TID 05/01/16 05/01/16 Unknown History Hydrocodone/APAP 10 mg/325 mg 1 each PO Q6H PRN PRN #25 tablet 05/04/16 Unknown Rx [[place]-10] Levofloxacin [Levaquin] 750 mg PO DAILY #3 tablet 05/04/16 Unknown Rx Meloxicam [Mobic] 7.5 mg PO DAILY #30 tablet 05/04/16 Unknown Rx Methylprednisolone [Medrol Dosepak] 4 mg PO DIRECTED #1 package 05/04/16 Unknown Rx - History of Present Illness-Dermatology Nature of Presenting Problem: Pt presents today for suture removal of the left hand. Area has healed very well. Location: reports: hands Quality: reports: painful Severity: reports: mild Onset/Duration: reports: other (10 days) Context/Associated Symptoms: reports: laceration - Recheck Treated days ago.: 10 Previous Treatment: laceration repair Antibiotics given: none Symptoms since procedure:: reports: no complaints Review of Systems - Adult - REVIEW OF SYSTEMS - ADULT Constitutional: reports: no symptoms reported. denies: chills, fever Eyes: reports: no symptoms reported. denies: discharge, dry eyes Ears, Nose, Mouth & Throat: reports: no symptoms reported. denies: ear discharge, ear pain Cardiovascular: reports: no symptoms reported. denies: chest pain, edema Respiratory: reports: no symptoms reported. denies: chronic cough, cough Gastrointestinal: reports: no symptoms reported. denies: abdominal pain, hematemesis Genitourinary: reports: no symptoms reported. denies: dysuria, discharge Musculoskeletal: reports: no symptoms reported. denies: bone pain, back pain Integumentary: reports: see HPI. denies: mole changes, nail changes Neurological: reports: no symptoms reported. denies: ataxia, dizziness/vertigo Psychiatric: reports: no symptoms reported. denies: anxiety, anti-depressant use Endocrine: reports: no symptoms reported Hematologic/Lymphatic: reports: no symptoms reported Allergic/Immunologic: reports: no symptoms reported All Other Systems: Reviewed and Negative Past History - Adult - PAST MEDICAL HISTORY-ADULT Review of Records: reports: Old Records Reviewed, Nursing Assessment Review, Medications Reviewed, Social history reviewed & non-contributory. Major Childhood Illnesses: reports: denies history Cardiovascular: reports: CHF, hyperlipidemia, pacemaker Respiratory: reports: denies history Gastrointestinal: reports: cancer (colon) Obstetrical/Gynecological: reports: denies history Genitourinary: reports: denies history Musculoskeletal: reports: denies history Neurological: reports: dementia Endocrine/Immune: reports: Diabetes Other Conditions: reports: denies history - PRIOR SURGERIES/PROCEDURES Surgical/Procedure History: reports: CABG (x), hernia repair, joint replacement , back/neck, other (colostomy) - IMMUNIZATION STATUS Childhood Immunizations: See Nurse Assessment Flu Vaccine: See Nurse Assessment - FAMILY HISTORY Family History: reviewed, not pertinent Physical Exam-General - PHYSICAL EXAM-ADULT Initial Vital Signs Reviewed: Yes - CONSTITUTIONAL General Appearance: appears well, alert, no apparent distress - EYES Eyes: PERRL/EOMI, pink conjunctivae - HEAD, EARS, NOSE, MOUTH & THROAT HENMT: normocephalic/atraumatic, moist mucous membranes, normal ENT inspection - NECK Neck: non-tender, full range of motion - RESPIRATORY Respiratory: chest non-tender, lungs clear - CARDIOVASCULAR Cardiovascular: normal peripheral pulses, regular rate, rhythm - GASTROINTESTINAL (ABDOMEN) Abdominal Exam: normal bowel sounds, non tender, soft - MUSCULOSKELETAL Back Exam: normal inspection Extremity: normal range of motion, non-tender, normal gait, normal inspection - SKIN Integumentary: normal turgor, warm/dry, laceration(s) (well healed) Progress - PLAN OF CARE/RESULTS Progress/Plan/Lab Results: Vital Signs Temp Pulse Resp BP Pulse Ox 05/22/16 14:34 98.8 F 93 H 20 117/052 96 Penicillins Allergy (Verified 05/01/16 12:22) RASH Alprazolam [Xanax] 1 mg PO HS PRN 12/20/15 Amiodarone [Cordarone] 200 mg PO DAILY 12/20/15 Apixaban [Eliquis] 5 mg PO DAILY 12/20/15 Aspirin [Aspir-Low] 81 mg PO DAILY 12/20/15 Furosemide [Lasix] 40 mg PO DAILY 12/20/15 Insulin Humulin 70/30 [Humulin 70/30] 1 unit .SEE ORDER DIRECTED 12/20/15 Potassium Chloride E.r. [Klor-Con] 20 meq PO DAILY 12/20/15 RAMIpril [Altace] 5 mg PO HS 12/20/15 Temazepam [Restoril] 30 mg PO HS 12/20/15 Gabapentin [Neurontin] 200 mg PO TID 05/01/16 Hydrocodone/APAP 10 mg/325 mg [[place]-10] 1 each PO Q6H PRN PRN #25 tablet Levofloxacin [Levaquin] 750 mg PO DAILY #3 tablet 05/04/16 Meloxicam [Mobic] 7.5 mg PO DAILY #30 tablet 05/04/16 Methylprednisolone [Medrol Dosepak] 4 mg PO DIRECTED #1 package 05/04/16 Sutures removed. Laceration well healed. Departure - Departure Time of Disposition Order: 14:47 DIAGNOSIS: Encounter for removal of sutures Disposition: HOME 01 Certified Medical Emergency: Urgent Condition: Good Additional Instructions: Keep area clean and dry. Follow up with your primary care provider. ED Follow Up Instructions: You have been treated by a care provider in the Emergency Department. These instructions are being provided to you so you can have an understanding of how to care for yourself upon discharge. Upon discharge from the Emergency Department, you are responsible for making arrangements for follow-up care by a physician of your choice. Take all prescribed medications as directed. Return to the Emergency Department immediately for any new or worsening symptoms. You may call the Physician Referral phone number at [phone] to obtain a list of Physicians who are taking new patients. Attestation - Physician/ KATIUSKA Attestation Patient care was provided by Advanced Practice Provider:: Yes Advanced Practice Provider:: Luis Dawson Advanced Practice Provider documentation review:: The Mid-level provider documentation, treatment plan and medical decision making was reviewed by the physician who agrees with all treatment and medical decision making by the MLP.
== END 2016-05-22 14:55 | disposition home or self-care (01) ==
LOC: P.ED 14:16
DX: Z48.02 Encounter for removal of sutures (principal); S61.412D Laceration without foreign body of left hand, subsequent encounter; I50.9 Heart failure, unspecified; E78.5 Hyperlipidemia, unspecified; Z95.0 Presence of cardiac pacemaker; Z85.038 Personal history of other malignant neoplasm of large intestine; E11.9 Type 2 diabetes mellitus without complications; F03.90 Unspecified dementia, unspecified severity, without behavioral disturbance, psychotic disturbance, mood disturbance, and anxiety; Z79.899 Other long term (current) drug therapy; Z95.1 Presence of aortocoronary bypass graft; Z93.3 Colostomy status; Z79.1 Long term (current) use of non-steroidal anti-inflammatories (NSAID); Z79.4 Long term (current) use of insulin; Z79.82 Long term (current) use of aspirin; Z79.01 Long term (current) use of anticoagulants
CPT/HCPCS: 99282